=== PATIENT | female | born 1975 | race African-American/Black ===

== ENCOUNTER 2016-10-01 10:57 | Observation (INO) | payer OTHER ==
--- NOTE | ~2016-10-01 | CO ---
Unit #: [id number] #: [id number] Patient: LUPILLO RAI [id number] [address] [place], [place] [address] [id number] E MR#: [id number] NAME: LUPILLO RAI ROOM: Age: 41 Sex: F Admission Date: 10/01/2016 : 1975 Attending Physician: Darin Chavez M.D. Consultation Date: 10/01/2016 CONSULTATION REPORT BRIEF HISTORY Patient is a 41-year-old lady with a 24-hour history of right lower quadrant abdominal pain and some nausea. No vomiting, no diarrhea, no change in bowel habits, no fevers, no trauma, and no history of similar type pain. PAST MEDICAL HISTORY She has had no abdominal operations and no medical history. MEDICATIONS Diclofenac. SOCIAL HISTORY She does smoke a pack per day. No alcohol. FAMILY HISTORY Negative for GI malignancy. REVIEW OF SYSTEMS No cardiopulmonary complaints at this time. Ten systems were reviewed and are negative. PHYSICAL EXAMINATION GENERAL: She is awake, alert, and appropriate. VITAL SIGNS: Currently afebrile. HEENT: Unremarkable. NECK: Supple. No JVD. Trachea midline. LUNGS: Clear to auscultation with bilateral breath sounds symmetric. CARDIOVASCULAR: Regular rate and rhythm. ABDOMEN: Soft. She is tender in the right lower quadrant with point tenderness at McBurney's point. There is no rebound, no masses, and no hepatosplenomegaly. EXTREMITIES: No clubbing, cyanosis, or edema. DIAGNOSTIC STUDIES LABORATORY: White count of 10 and hemoglobin is 11. IMAGING: CT scan shows pericolonic inflammation consistent with appendicitis. ASSESSMENT Appendicitis. PLAN Unit #: [id number] #: [id number] Patient: LUPILLO RAI Recommend laparoscopic appendectomy. We discussed the risks and benefits in detail including the possibility of conversion to open. Dictated by... Shay Davies/vira TD: 10/01/2016 16:09 JOB #: [id number] CONSULTATION REPORT Page 1 of 1 X Tao Galloway MD X CONSULTATION REPORT
--- NOTE | ~2016-10-01 | CT2 ---
[facility] A Service of [facility] RADIOLOGY TEXT RESULTS PATIENT: LUPILLO RAI LOCATION: [facility] : 71 UNIT #: [id number] AGE: [address]: Tao Galloway MD SEX: F ORDER DR: [id number] [facility] [address] [facility]. [place], [place] [address] [id number] E MR#: [id number] Acc #: [id number] NAME: LUPILLO RAI : 1975 SEX: F STUDY DATE/TIME: 10/01/2016 11:39 UNIT: [facility] ROOM: STUDY DESCRIPTION: CT Abd and Pelv W Cont Attending Physician: Darin Chavez M.D. Ordering Physician: Ashley Hoffman M.D. Primary Care Physician: No Primary Care Physician MEDICAL IMAGING REPORT This report is preliminary unless electronic signature is present EXAM CT of the abdomen and pelvis, with contrast. HISTORY Abdominal pain since yesterday with nausea and vomiting. Right-sided abdominal pain. TECHNIQUE CT of the abdomen and pelvis was performed following the administration of oral and IV contrast. Coronal and sagittal reformatted images were obtained. This CT exam was performed with one or more of the following radiation dose reduction techniques: automatic exposure control, adjustment of mA and/or kV according to patient size, and iterative reconstruction. COMPARISON No comparisons. FINDINGS There is minimal linear scar or atelectasis in the left lower lobe. The liver, gallbladder, spleen, kidneys, adrenal glands, and pancreas are unremarkable. PELVIS: The appendix is thickened and fluid-filled, and there is surrounding inflammatory stranding and fluid. Findings are consistent with acute appendicitis. There is no evidence of abscess or perforation. There is no free fluid in the pelvis. Physiologic ovarian cysts. There is no evidence for bowel obstruction. Bone windows are unremarkable. IMPRESSION [facility] A Service [facility] RADIOLOGY TEXT RESULTS PATIENT: LUPILLO RAI LOCATION: [facility] : 71 UNIT #: [id number] AGE: [address]: Tao Galloway MD SEX: F ORDER DR: Acute appendicitis. The appendix is thickened and fluid-filled, and there is surrounding inflammatory stranding and fluid. There is no discrete fluid collection. There is no abscess or perforation. Dictated by... Lucien Romo M.D. THIS IS AN ELECTRONICALLY VERIFIED REPORT Lucien Romo M.D. at 10/01/2016 4:52 PM SAGE/brian TD: 10/01/2016 13:06 JOB #: [id number] MEDICAL IMAGING REPORT Page 1 of 1 COPY
--- NOTE | ~2016-10-01 | OR ---
Unit #: [id number] #: [id number] Patient: LUPILLO RAI [id number] [address] [address] [id number] I MR#: [id number] NAME: LUPILLO RAI. ROOM: 468 Date of Procedure: 10/01/2016 Admission Date: 10/01/2016 Surgeon: Darvin Malin M.D. : 1975 Attending Physician: Tao Galloway M.D. OPERATIVE REPORT PREOPERATIVE DIAGNOSIS Acute appendicitis. POSTOPERATIVE DIAGNOSIS Acute appendicitis. PROCEDURE PERFORMED Laparoscopic appendectomy. ANESTHESIA General endotracheal anesthesia. ESTIMATED BLOOD LOSS Less than 10 mL. 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 INDICATIONS FOR PROCEDURE A 41-year-old female, who presented to the ER with right lower quadrant pain and nausea. CT confirmed acute appendicitis. DESCRIPTION OF PROCEDURE The patient was admitted to the operating room from the emergency room and after induction of general endotracheal anesthesia, Foreman catheter was placed. Her abdominal wall hair was clipped, and she was prepped and draped in usual sterile fashion. She had already received IV antibiotics in the emergency room. A 5-mm supraumbilical incision was made. Veress needle was placed. Pneumoperitoneum was created. Then, a 5-mm trocar was placed. Laparoscope was introduced into the peritoneal cavity. Under direct vision, a 5-mm suprapubic and a 12-mm infraumbilical trocar were placed under direct vision. The cecum was identified and mobilized. The appendix was retrocecal. Once the appendix was mobilized, it was noted to be suppurative. The base of the appendix was from the mesoappendix and the mesoappendix was clamped, divided, and ligated using an Endo JEAN PIERRE with a vascular load. I then elevated the appendix and clamped, divided, and ligated the appendix as it entered the cecum with a JEAN PIERRE stapler. The appendix was placed in an EndoCatch bag and brought out through the 12 mm port site. I then recreated the pneumoperitoneum and copiously irrigated the operative site. There was excellent hemostasis and the staple lines were intact. After the fluid was suctioned out of the abdomen, the cecum was placed back in the right colic gutter and Unit #: [id number] #: [id number] Patient: LUPILLO RAI omentum was pulled over the area. I then closed the 12 mm port site using a neoClose device and the closure was airtight. I reduced the pneumoperitoneum and removed laparoscope and trocars. 0.5% Marcaine with epinephrine was infiltrated in each trocar site. The skin was closed with 4-0 Monocryl subcuticular closure and Dermabond skin adhesive. Sponges and needle counts were correct x3. Foreman catheter was removed and she was transported to recovery in stable condition. Dictated by... Shay Holliday/iris TD: 10/02/2016 02:14 JOB #: [id number] OPERATIVE REPORT Page 1 of 1 X Darvin Malin MD PROCEDURE OPERATIVE NOTE
--- NOTE | ~2016-10-01 | EKG ---
PATIENT: LUPILLO RAI UNIT #: [id number] Ventricular Rate: 59 BPM Atrial Rate: 59 BPM P-R Interval: 156 ms QRS Duration: 82 ms Q-T Interval: 458 ms QTC Calculation(Bezet): 453 ms P Max: 51 degrees Calculated R Max: 91 degrees Calculated T Max: 81 degrees Diagnosis Line: Sinus bradycardia Diagnosis Line: Rightward axis Diagnosis Line: Moderate voltage criteria for LVH, may be normal Diagnosis Line: variant Diagnosis Line: Borderline ECG Diagnosis Line: No previous ECGs available Diagnosis Line: Confirmed by DAVIAN ELLIS MD ([id number]) on 10/02/2016 Diagnosis Line: 11:15:28 PM INTERPRETING MD: CALEB LAMAS
[2016-10-01 09:52] LABS: BASOPHIL% 0.3 % (0-2.5); LYMPHOCYTE# 1.3 X10e3 (1.0-3.5); LYMPHOCYTE% 13.2 % (17.0-45.0); MEAN CELL VOLUME 82.8 FL (83-96); MEAN CORPUSCULAR HGB CONC 31.4 g/dL (30-36); MEAN PLATELET VOLUME 7.7 FL (6.5-11.5); MONOCYTE# 1.1 X10e3 (0-1.0); MONOCYTE% 11.2 % (3.0-12.0); NEUTROPHIL# 7.6 X10e3 (1.5-7.1); NEUTROPHIL% 75.3 % (40-75); PLATELET COUNT 256 X10e3 (140-420); RED BLOOD COUNT 4.23 X10e (3.90-5.30); RED CELL DISTRIBUTION WIDTH 17.6 % (11.0-15.5)
[2016-10-01 09:59] LABS: DIFF IND NO
[2016-10-01 10:02] LABS: URINE SOURCE CLEAN CATCH
[2016-10-01 10:18] LABS: URINE APPEARANCE CLOUDY; URINE BILIRUBIN NEG (NEG); URINE BLOOD 2+ (NEG); URINE COLOR YELLOW; URINE GLUCOSE NEG (NEG); URINE KETONE TRACE (NEG); URINE LEUKOCYTE ESTERASE NEG (NEG); URINE NITRATE NEG (NEG); URINE PROTEIN TRACE (NEG); URINE SPECIFIC GRAVITY 1.025 (1.003-1.035); URINE UROBILINOGEN 0.2 MG/DL (NEG)
[2016-10-01 10:19] LABS: ALBUMIN SERUM 4.2 g/dL (3.5-5.0); BILIRUBIN, DIRECT 0.1 mg/dL (0.0-0.2); BILIRUBIN,INDIRECT 0.6 mg/dL (0.0-0.9); BILIRUBIN,TOTAL 0.7 mg/dL (0.2-2.0); CALCIUM SERUM 9.1 mg/dL (8.4-10.2); CREATININE SERUM 0.5 mg/dL (0.6-1.4); GLOM FILT RATE Estimated 137.4 mL/min (>60); POTASSIUM 3.6 mmol/L (3.5-5.1); PROTEIN TOTAL SERUM 7.7 g/dL (6.0-8.3)
[2016-10-01 10:21] LABS: CULTURE INDICATED? YES; URINE BACTERIA AUWI 1+ (NEGATIVE); URINE SQUAMOUS EPITHELIAL CELL MOD /[HPF]
[~2016-10-01 10:57] MED LIST: FLEXERIL PO; KETOPROFEN PO; MEDROL PO; VOLTAREN75 MG PO
[2016-10-01 11:21] LABS: POC - CKMB <1.0 ng/mL (0.0-7.9); POC - TROPONIN <0.05 ng/mL (<=0.05)
[2016-10-01 13:43] LABS: POC - CKMB <1.0 ng/mL (0.0-7.9); POC - TROPONIN <0.05 ng/mL (<=0.05)
[2016-10-02] MEDS ORDERED: NORCO 10-325 TA1 TAB PO (07:35)
[2016-10-02] MEDS ORDERED: BENADRYL25 M3 PO (07:35)
== END 2016-10-02 09:15 | disposition home or self-care (01) ==
LOC: CED 10:57 → CPACUOF 14:20 → C4C 16:40
PROVIDERS: Emergency Medicine
DX: K35.80 Unspecified acute appendicitis (principal); F17.200 Nicotine dependence, unspecified, uncomplicated
CPT/HCPCS: 36415; 74177; 80048; 80076; 81003; 82553; 83690; 84484; 84703; 85025; 87086; 88304; 93005; 96361; 96372; 96374; 96375; 96376; 99285; G0378; J0330; J1100; J1170; J1335; J1644; J1885; J2250; J2270; J2405; J3010; Q9967

== ENCOUNTER 2016-12-07 22:14 | Emergency (ER) | payer OTHER ==
--- NOTE | ~2016-12-07 | CR126 ---
[facility] A Service of [facility] RADIOLOGY TEXT RESULTS PATIENT: LUPILLO RAI LOCATION: [facility] : 71 UNIT #: [id number] AGE: [address]: Tao Regalado SEX: F ORDER DR: [id number] [facility] [address] [facility]. [place], [place] [address] [id number] E MR#: [id number] Acc #: [id number] NAME: LUPILLO RAI. : 1975 SEX: F STUDY DATE/TIME: 12/08/2016 0:25 UNIT: [facility] ROOM: STUDY DESCRIPTION: CR Foot Complete Min 3 View Lt Attending Physician: Tao Regalado P.A.-C. Ordering Physician: Tao Regalado P.A.-C. Primary Care Physician: Primary Care Physician No MEDICAL IMAGING REPORT This report is preliminary unless electronic signature is present EXAM Left foot INDICATION Left foot pain and swelling after falling down steps today. FINDINGS The tarsal, metatarsal, and phalangeal elements are all anatomically normal in position and alignment. There are no articular defects. No fractures or radiopaque foreign bodies in the soft tissues are apparent. IMPRESSION Normal foot. Dictated by... Jones Orozco M.D. THIS IS AN ELECTRONICALLY VERIFIED REPORT Jones Orozco M.D. at 12/08/2016 1:31 PM MANDY/teresa TD: 12/08/2016 08:24 JOB #: [id number] MEDICAL IMAGING REPORT Page 1 of 1 COPY
--- NOTE | ~2016-12-07 | CR20 ---
[facility] A Service of [facility] & [facility] RADIOLOGY TEXT RESULTS PATIENT: LUPILLO RAI LOCATION: [facility] : 71 UNIT #: [id number] AGE: [address]: Tao Regalado SEX: F ORDER DR: [id number] [facility] [address] [facility]. [place], [place] [address] [id number] E MR#: [id number] #: [id number] NAME: LUPILLO RAI. : 1975 SEX: F STUDY DATE/TIME: 12/08/2016 0:24 UNIT: [facility] ROOM: STUDY DESCRIPTION: CR Ankle Min 3 Views Lt Attending Physician: Tao Regalado P.A.-C. Ordering Physician: Tao Regalado P.A.-C. Primary Care Physician: Primary Care Physician No MEDICAL IMAGING REPORT This report is preliminary unless electronic signature is present EXAM Left ankle INDICATION Left ankle pain and swelling beginning today after falling down steps. FINDINGS AP, lateral, and oblique projections of the ankle show satisfactory integrity of the joint mortise with a smooth articular surface. There is no identifiable fracture, dislocation, or radiopaque foreign body. IMPRESSION Normal ankle. Dictated by... Jones Orozco M.D. THIS IS AN ELECTRONICALLY VERIFIED REPORT Jones Orozco M.D. at 12/08/2016 1:30 PM MANDY/teresa TD: 12/08/2016 08:23 JOB #: [id number] MEDICAL IMAGING REPORT Page 1 of 1 COPY
[~2016-12-07 22:14] MED LIST changes: +BENADRYL25 M3 PO; +NORCO 10-325 TA1 TAB PO
== END 2016-12-08 00:55 | disposition home or self-care (01) ==
LOC: CFTX 22:14 → CED 22:14 → CFTX 23:59
DX: S93.402A Sprain of unspecified ligament of left ankle, initial encounter (principal); F17.210 Nicotine dependence, cigarettes, uncomplicated; Z98.51 Tubal ligation status; Z90.49 Acquired absence of other specified parts of digestive tract; X50.1XXA Overexertion from prolonged static or awkward postures, initial encounter; Y92.009 Unspecified place in unspecified non-institutional (private) residence as the place of occurrence of the external cause
CPT/HCPCS: 29515; 73610; 73630; 99283